=== PATIENT | female | born 1985 ===

== ENCOUNTER 2020-12-11 08:26 | Emergency (ER) | payer OTHER ==
[~2020-12-11] VITALS: Ht 170.2 cm; Wt 59.0 kg
[2020-12-11] MEDS ORDERED: BETAMETHASONE V15 GM TOP (15:59)
[2020-12-11] MEDS ORDERED: BENZONATATE200 M1 PO (15:59)
[2020-12-11] MEDS ORDERED: BENADRYL25 MG PO (15:59)
== END 2020-12-11 16:04 | disposition home or self-care (01) ==
LOC: ER 08:26
DX: B34.9 Viral infection, unspecified (principal); Z11.52 Encounter for screening for COVID-19